=== PATIENT | male | born 1965 | race Caucasian/White ===

== ENCOUNTER → 2016-06-28 | Outpatient (CLI) | payer OTHER ==
--- NOTE | 2016-06-28 16:03 | DIAGNOSTIC IMAGING REPORT ---
CT SCAN OF THE RIGHT ANKLE WITHOUT IV CONTRAST CLINICAL HISTORY: Right ankle pain. COMPARISON STUDY: No priors TECHNIQUE: CT scan of the right ankle is performed from the distal tibia and fibula to the foot. Images are reviewed in the axial, sagittal, and coronal planes. IV contrast was not administered for this examination. Note that interpretation is significantly degraded without plain film correlate. FINDINGS: The skeletal structures are osteopenic. There is extensive chronic posttraumatic deformity seen within the calcaneus. Two cortical lag screws are seen within the calcaneus. The screws appear intact and no surrounding lucency is identified. Chronic posttraumatic deformity and postoperative change is also seen within the lateral malleolus. There is also questionable chronic posttraumatic deformity at the base of the second metatarsal. Small ossific densities inferior to the medial malleolus likely represent chronic avulsion injuries. No acute fracture is seen. No bony erosion or periostitis is seen. There is no offset at the second tarsometatarsal articulation to suggest Lisfranc injury. No osteochondral defect is identified in the talar dome. An os trigonum is incidentally noted. No ankle joint effusion is seen. There remains normal fat within the sinus tarsi. A dorsal calcaneal enthesophyte is noted. The Achilles tendon appears thickened and irregular at its insertion suggesting tendinopathy. The anterior, posterior, and peroneal tendons are intact as visualized. These are not well assessed by CT. The regional musculature is normal in appearance. No significant soft tissue edema is identified. IMPRESSION: 1. No acute bony abnormality is seen in the right ankle. 2. Osteopenia with chronic posttraumatic and postoperative findings as above. 3. There is a dorsal calcaneal enthesophyte and the Achilles tendon appears thickened and irregular at its insertion suggesting tendinopathy. Clinical correlation will be required. Dictated: 06/28/2016 3:39 PM Transcribed: 06/28/2016 4:02 PM Charles Electronically signed by: Anselmo Chowdary M.D. 06/28/2016 4:08 PM Dictated Date/Time: 06/28/2016 3:39 PM
== END | disposition home or self-care (01) ==
LOC: C.CTS 15:15
PROVIDERS: ATTEND Orthopaedic Surgery Sports Medicine
DX: M25.571 Pain in right ankle and joints of right foot (principal); M85.871 Other specified disorders of bone density and structure, right ankle and foot

== ENCOUNTER → 2016-09-16 | Outpatient (CLI) | payer OTHER ==
--- NOTE | 2016-09-16 14:45 | DIAGNOSTIC IMAGING REPORT ---
BONE SCAN 3 PHASE LIMITED CLINICAL HISTORY: G90.50 pain TECHNIQUE: Multiphase evaluation from the administration of 25 mCi technetium 99m MDP COMPARISON STUDY: None FINDINGS: Increased vascular flow to the right foot neck was compared to the left. Blood pool images show mild increase in activity overlying the right ankle. Delayed images demonstrate increased activity at the right ankle mortise level. Significance is uncertain. A joint space infection, developing pseudoarticulation, or potential osteomyelitis is considered. IMPRESSION: 1. Increased vascular flow to the right foot and ankle with delayed increase in activity at the level of the talus and distal tibia 2. Diagnostic considerations include osteomyelitis/joint space infection, versus an atypical presentation of reflex sympathetic dystrophy Electronically signed by: Reed Montes M.D. 09/16/2016 1:43 PM Dictated Date/Time: 09/16/2016 1:36 PM
== END | disposition home or self-care (01) ==
LOC: C.NUCL 10:14
PROVIDERS: ATTEND Physician Assistant
DX: G90.50 Complex regional pain syndrome I, unspecified (principal)

== ENCOUNTER → 2016-09-22 | Outpatient (CLI) | payer OTHER ==
--- NOTE | 2016-09-22 15:08 | DIAGNOSTIC IMAGING REPORT ---
RIGHT LOWER EXTREMITY VENOUS DOPPLER CLINICAL HISTORY: Right leg pain. COMPARISON STUDY: No previous studies for comparison. TECHNIQUE: Sonography of the deep venous system of the right lower extremity was performed. Compression and augmentation were evaluated. FINDINGS: The right common femoral, superficial femoral and popliteal veins were compressible. Augmentation was normal. Flow was shown within the deep calf vessels. IMPRESSION: No evidence of deep venous thrombus within the right lower extremity. Electronically signed by: Kishor Gomez M.D. 09/22/2016 3:07 PM Dictated Date/Time: 09/22/2016 3:03 PM
== END | disposition home or self-care (01) ==
LOC: C.ULTR 14:15
PROVIDERS: ATTEND Orthopaedic Surgery Sports Medicine
DX: M79.661 Pain in right lower leg (principal)